=== PATIENT | male | born 1965 | race Caucasian/White ===

== ENCOUNTER 2017-04-03 08:36 | Emergency (ER) | payer OTHER ==
[~2017-04-03] VITALS: Ht 154.9 cm; Wt 70.0 kg
[~2017-04-03 08:36] MED LIST: ADVIL200 MG PO; ALEVE220 M1 PO; FLEXERIL PO; FLEXERIL5 M1 PO; HYDROCODONE PO; LORTAB5 PO; MELOXICAM15 MG PO; NAPROSYN375 MG PO; NAPROXEN500 MG PO; PENICILLN VK250 MG OR; PENICILLN VK500 MG OR; PERCOCET1 TA5 PO; TRAMADOL HCL50 MG PO; ULTRAM50 M1 PO; percocet
[2017-04-03 09:56] LABS: HEMATOCRIT 44.1 % (39.0-50.0); HEMOGLOBIN 14.6 g/dl (14.0-18.0); IMMATURE GRANULOCYTES 0.2 % (0.0-1.0); MEAN CELL VOLUME 84.5 fL CALC (80.0-100.0); MEAN CORPUSCULAR HGB CONC 33.1 g/L CALC (32.0-36.0); NEUT# 4.19 thou/uL (1.82-7.42); RED BLOOD COUNT 5.22 mill/uL (4.70-6.10); RED CELL DISTRI WIDTH 13.7 % (11.5-15.5)
[2017-04-03 10:08] LABS: ALBUMIN 4.9 g/dL (3.2-5.0); ALKALINE PHOSPHATASE 83 u/l (38-126); ANION GAP 15 (6-22 (CALC)); BUN 9 mg/dL (9-20); BUN/CREATININE RATIO 10 (12-20 (CALC)); CALCIUM 9.9 mg/dL (8.4-10.2); CARBON DIOXIDE 24 mmol/l (22-30); CHLORIDE 109 mmol/l (95-108); CREATININE 0.9 mg/dL (0.7-1.3); GFR > 60 ML/MIN (>=60 (CALC)); GFR FOR AFR.AMER. > 60 ML/MIN (>=60 (CALC)); GLUCOSE 109 mg/dL (75-110); POTASSIUM 4.4 mmol/l (3.5-5.1); SGOT/AST 31 u/l (17-59); SGPT/ALT 34 u/l (21-72); SODIUM 143 mmol/l (137-146); TOTAL PROTEIN 8.1 g/dL (6.3-8.2)
[2017-04-03 10:32] LABS: URINE BILIRUBIN - DIPSTICK NEGATIVE (NEGATIVE); URINE BLOOD DIPSTICK NEGATIVE (NEGATIVE); URINE COLOR YELLOW; URINE GLUCOSE - DIPSTICK NEGATIVE (NEGATIVE); URINE KETONE NEGATIVE (NEGATIVE); URINE LEUK ESTERASE NEGATIVE (NEGATIVE); URINE NITRITE - DIPSTICK NEGATIVE (Negative); URINE PROTEIN - DIPSTICK NEGATIVE (NEG-TRACE); URINE SPECIFIC GRAVITY 1.025; URINE UROBILINOGEN - DIPSTICK 0.2 E.U./dL (0.2)
[2017-04-03 10:34] LABS: URINE CLARITY CLEAR
[2017-04-03] MEDS ORDERED: ANUCORT-HC25 MG RE (10:39)
[2017-04-03] MEDS ORDERED: SEPTRA4001 PO (10:39)
[2017-04-03] MEDS ORDERED: TORADOL PO (10:39)
[2017-04-03 10:58] VITALS: BP 158/82
== END 2017-04-03 11:02 | disposition home or self-care (01) | DRG 395 ==
LOC: ED 08:36
PROVIDERS: Emergency Medicine
DX: K62.89 Other specified diseases of anus and rectum (principal); K59.00 Constipation, unspecified; K64.8 Other hemorrhoids; N34.2 Other urethritis; K64.4 Residual hemorrhoidal skin tags

== ENCOUNTER 2017-05-23 09:59 | Emergency (ER) | payer OTHER ==
[~2017-05-23] VITALS: Ht 154.9 cm; Wt 70.0 kg
[~2017-05-23 09:59] MED LIST changes: +ANUCORT-HC25 MG RE; +SEPTRA4001 PO; +TORADOL PO
[2017-05-23 11:35] LABS: HEMOGLOBIN 13.5 g/dl (14.0-18.0); IMMATURE GRANULOCYTES 0.4 % (0.0-1.0); MEAN CELL VOLUME 84.5 fL CALC (80.0-100.0); MEAN CORPUSCULAR HGB 27.8 pG CALC (26.0-32.0); MEAN CORPUSCULAR HGB CONC 32.9 g/L CALC (32.0-36.0); NEUT# 5.16 thou/uL (1.82-7.42); RED BLOOD COUNT 4.85 mill/uL (4.70-6.10); RED CELL DISTRI WIDTH 13.3 % (11.5-15.5)
[2017-05-23 11:45] LABS: ALBUMIN 4.3 g/dL (3.2-5.0); ALKALINE PHOSPHATASE 95 u/l (38-126); ANION GAP 13 (6-22 (CALC)); BILIRUBIN, TOTAL 0.8 mg/dL (0.0-1.4); BUN 14 mg/dL (9-20); BUN/CREATININE RATIO 17 (12-20 (CALC)); CARBON DIOXIDE 27 mmol/l (22-30); CHLORIDE 105 mmol/l (95-108); CREATININE 0.8 mg/dL (0.7-1.3); GFR > 60 ML/MIN (>=60 (CALC)); GFR FOR AFR.AMER. > 60 ML/MIN (>=60 (CALC)); LIPASE 55 u/l (23-300); POTASSIUM 4.7 mmol/l (3.5-5.1); SGOT/AST 23 u/l (17-59); SGPT/ALT 38 u/l (21-72); SODIUM 141 mmol/l (137-146); TOTAL PROTEIN 7.2 g/dL (6.3-8.2)
[2017-05-23] MEDS ORDERED: MOTRIN400 MG PO (12:59)
[2017-05-23] MEDS ORDERED: CIPRO XR500 MG PO (12:59)
[2017-05-23] MEDS ORDERED: METRONIDAZOL500 MG PO (12:59)
[2017-05-23 13:07] LABS: URINE BILIRUBIN - DIPSTICK NEGATIVE (NEGATIVE); URINE BLOOD DIPSTICK NEGATIVE (NEGATIVE); URINE COLOR YELLOW; URINE GLUCOSE - DIPSTICK NEGATIVE (NEGATIVE); URINE KETONE NEGATIVE (NEGATIVE); URINE LEUK ESTERASE NEGATIVE (NEGATIVE); URINE NITRITE - DIPSTICK NEGATIVE (Negative); URINE PROTEIN - DIPSTICK NEGATIVE (NEG-TRACE); URINE UROBILINOGEN - DIPSTICK 0.2 E.U./dL (0.2)
[2017-05-23 13:08] LABS: URINE CLARITY CLEAR
[2017-05-23 13:34] VITALS: BP 131/81
== END 2017-05-23 13:34 | disposition home or self-care (01) | DRG 395 ==
LOC: ED 09:59
PROVIDERS: Family Medicine
DX: K62.89 Other specified diseases of anus and rectum (principal); K64.4 Residual hemorrhoidal skin tags; R10.32 Left lower quadrant pain; R11.0 Nausea
CPT/HCPCS: Q9967

== ENCOUNTER 2017-09-06 10:06 | Emergency (ER) | payer OTHER ==
[~2017-09-06] VITALS: Ht 154.9 cm; Wt 90.0 kg
[~2017-09-06 10:06] MED LIST changes: +CIPRO XR500 MG PO; +METRONIDAZOL500 MG PO; +MOTRIN400 MG PO
[2017-09-06 11:42] LABS: HEMATOCRIT 38.3 % (39.0-50.0); HEMOGLOBIN 12.7 g/dl (14.0-18.0); IMMATURE GRANULOCYTES 0.7 % (0.0-1.0); MEAN CELL VOLUME 80.6 fL CALC (80.0-100.0); MEAN CORPUSCULAR HGB 26.7 pG CALC (26.0-32.0); MEAN CORPUSCULAR HGB CONC 33.2 g/L CALC (32.0-36.0); NEUT# 12.71 thou/uL (1.82-7.42); RED BLOOD COUNT 4.75 mill/uL (4.70-6.10)
[2017-09-06 12:10] LABS: ALBUMIN 3.7 g/dL (3.2-5.0); ALKALINE PHOSPHATASE 92 u/l (38-126); ANION GAP 20 (6-22 (CALC)); BILIRUBIN, TOTAL 0.6 mg/dL (0.0-1.4); BUN 14 mg/dL (9-20); BUN/CREATININE RATIO 19 (12-20 (CALC)); CARBON DIOXIDE 23 mmol/l (22-30); CHLORIDE 99 mmol/l (95-108); CREATININE 0.7 mg/dL (0.7-1.3); GFR > 60 ML/MIN (>=60 (CALC)); GFR FOR AFR.AMER. > 60 ML/MIN (>=60 (CALC)); SGOT/AST 30 u/l (17-59); SGPT/ALT 71 u/l (21-72); SODIUM 138 mmol/l (137-146); TOTAL PROTEIN 7.2 g/dL (6.3-8.2)
[2017-09-06] MEDS ORDERED: PHENERGAN25 MG RE (12:36)
[2017-09-06] MEDS ORDERED: MORPHINE SUL30 M3 PO (12:36)
[2017-09-06] MEDS ORDERED: OXYCODONE HCL15 MG PO (12:37)
[2017-09-06 13:33] LABS: URINE BILIRUBIN - DIPSTICK NEGATIVE (NEGATIVE); URINE BLOOD DIPSTICK LARGE (NEGATIVE); URINE COLOR YELLOW; URINE GLUCOSE - DIPSTICK NEGATIVE (NEGATIVE); URINE KETONE TRACE mg/dL (NEGATIVE); URINE LEUK ESTERASE NEGATIVE (NEGATIVE); URINE NITRITE - DIPSTICK NEGATIVE (Negative); URINE PROTEIN - DIPSTICK NEGATIVE (NEG-TRACE); URINE UROBILINOGEN - DIPSTICK 0.2 E.U./dL (0.2)
[2017-09-06 13:34] LABS: URINE CLARITY CLEAR
[2017-09-06 13:43] LABS: URINE RBC TNTC RBC/hpf (0-5); URINE SQUAMOUS EPITHELIAL CELL FEW EPI/hpf (0-FEW)
[2017-09-06 14:11] VITALS: BP 137/67
== END 2017-09-06 14:21 | disposition home or self-care (01) | DRG 948 ==
LOC: ED 10:06
PROVIDERS: Emergency Medicine
DX: G89.18 Other acute postprocedural pain (principal); C20 Malignant neoplasm of rectum; Z93.6 Other artificial openings of urinary tract status; Z93.3 Colostomy status
CPT/HCPCS: Q9967

== ENCOUNTER 2018-01-05 07:09 | Emergency (ER) | payer OTHER ==
[~2018-01-05] VITALS: Ht 154.9 cm; Wt 60.0 kg
[~2018-01-05 07:09] MED LIST changes: +MORPHINE SUL30 M3 PO; +OXYCODONE HCL15 MG PO; +PHENERGAN25 MG RE
[2018-01-05] MEDS ORDERED: LEVAQUIN500 MG PO (07:32)
[2018-01-05 07:54] VITALS: BP 156/97
== END 2018-01-05 08:00 | disposition home or self-care (01) ==
LOC: ED 07:09
DX: R33.9 Retention of urine, unspecified (principal); C18.9 Malignant neoplasm of colon, unspecified; F17.210 Nicotine dependence, cigarettes, uncomplicated; Z93.3 Colostomy status

== ENCOUNTER 2018-01-10 07:45 | Emergency (ER) | payer OTHER ==
[~2018-01-10] VITALS: Ht 154.9 cm; Wt 60.0 kg
[~2018-01-10 07:45] MED LIST changes: +LEVAQUIN500 MG PO
[2018-01-10 08:13] VITALS: BP 138/75
== END 2018-01-10 08:18 | disposition home or self-care (01) ==
LOC: ED 07:45
DX: T83.021A Displacement of indwelling urethral catheter, initial encounter (principal); R33.9 Retention of urine, unspecified; C80.1 Malignant (primary) neoplasm, unspecified; C78.7 Secondary malignant neoplasm of liver and intrahepatic bile duct; F17.210 Nicotine dependence, cigarettes, uncomplicated; Y84.8 Other medical procedures as the cause of abnormal reaction of the patient, or of later complication, without mention of misadventure at the time of the procedure

== ENCOUNTER 2018-02-11 10:45 | Emergency (ER) | payer OTHER ==
[~2018-02-11] VITALS: Ht 154.9 cm; Wt 62.3 kg
[2018-02-11] MEDS ORDERED: PROAIR HFA108 MCG/AC PO (11:18)
[2018-02-11] MEDS ORDERED: PHENERGAN25 MG/TAB PO (11:19)
[2018-02-11] MEDS ORDERED: COMPAZINE10 MG PO (11:19)
[2018-02-11] MEDS ORDERED: LISINOPRIL10 M1 PO (11:19)
[2018-02-11] MEDS ORDERED: TAMSULOSIN HCL0.4 MG PO (11:20)
[2018-02-11] MEDS ORDERED: HYDROMORPHON4 MG PO (11:20)
[2018-02-11] MEDS ORDERED: OMEPRAZOLE20 M1 PO (11:21)
[2018-02-11 11:30] VITALS: BP 145/84
== END 2018-02-11 11:30 | disposition home or self-care (01) ==
LOC: ED 10:45
DX: Z46.6 Encounter for fitting and adjustment of urinary device (principal)

== ENCOUNTER 2018-02-24 04:49 | Emergency (ER) | payer OTHER ==
[~2018-02-24] VITALS: Ht 154.9 cm; Wt 61.4 kg
[~2018-02-24 04:49] MED LIST changes: +COMPAZINE10 MG PO; +HYDROMORPHON4 MG PO; +LISINOPRIL10 M1 PO; +OMEPRAZOLE20 M1 PO; +PHENERGAN25 MG/TAB PO; +PROAIR HFA108 MCG/AC PO; +TAMSULOSIN HCL0.4 MG PO
[2018-02-24 05:30] VITALS: BP 132/89
== END 2018-02-24 05:30 | disposition home or self-care (01) ==
LOC: ED 04:49
DX: K94.23 Gastrostomy malfunction (principal)

== ENCOUNTER 2018-07-21 12:10 | Emergency (ER) | payer OTHER | END 2018-07-21 12:15 | disposition E | LOC: ED 12:10 → EDBD 12:10 → ED 12:15 | DX: I46.9 Cardiac arrest, cause unspecified (principal); K92.0 Hematemesis; K62.5 Hemorrhage of anus and rectum; C34.90 Malignant neoplasm of unspecified part of unspecified bronchus or lung; Z93.9 Artificial opening status, unspecified ==